=== PATIENT | female | born 1950 | race Caucasian/White ===

== ENCOUNTER 2019-10-01 17:42 | Emergency (ER) | payer MEDICARE, OTHER ==
[~2019-10-01] VITALS: Ht 162.6 cm; Wt 70.3 kg
[2019-10-01 18:05] VITALS: BP 181/75
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
[2019-10-01] MEDS ORDERED: IBUPROFEN600 MG ORAL (18:23)
[2019-10-01] MEDS ORDERED: ROBAXIN-500MG ORAL (18:23)
[2019-10-01 19:16] VITALS: BP 181/75
== END 2019-10-01 19:16 | disposition home or self-care (01) ==
LOC: EMR 18:40
DX: S00.93XA Contusion of unspecified part of head, initial encounter (principal); S13.4XXA Sprain of ligaments of cervical spine, initial encounter; V43.62XA Car passenger injured in collision with other type car in traffic accident, initial encounter; Y92.410 Unspecified street and highway as the place of occurrence of the external cause
CPT/HCPCS: 99282